=== PATIENT | male | born 1980 ===

== ENCOUNTER 2018-04-22 11:48 | Emergency (ER) | payer OTHER ==
[2018-04-22 11:56] VITALS: BP 129/77; PULSE 54; TEMP 97; O2SAT 99
[2018-04-22 11:57] VITALS: BMI 29.6
[2018-04-22 12:06] VITALS: RESP 16
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
--- NOTE | 2018-04-22 13:51 | CARD ---
APPROVED REPORT EKG Measurement Heart [id number] <Conclusion> Sinus bradycardia Otherwise normal ECG
== END 2018-04-22 14:01 | disposition home or self-care (01) ==
LOC: H.ER 11:48
DX: R07.9 Chest pain, unspecified (principal); R51 Headache; M62.838 Other muscle spasm; V49.9XXA Car occupant (driver) (passenger) injured in unspecified traffic accident, initial encounter; Z87.891 Personal history of nicotine dependence

== ENCOUNTER 2018-10-02 12:28 | Emergency (ER) | payer SELFPAY ==
[2018-10-02 12:28] VITALS: BMI 29.6
[2018-10-02 12:54] VITALS: BP 146/72; PULSE 85; RESP 18; TEMP 98.2; O2SAT 97
[2018-10-02] MEDS ORDERED: Sodium Chloride 0.9% 1,000 ML IV STA (13:24)
--- NOTE | 2018-10-02 13:28 | ED PDOC ---
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 He is requesting detoxification because he has been drinking a lot in the last week. Patient reports that his last drink was today and came to the ED because his mother believes he needs help. According to interpreter deaf, patient says "I feel like I want to go to a bridge and jump". Otherwise, he denies chest pain and shortness of breath. PMD: Dr. Karis Velazquez Past Medical History Reviewed: Historical Data, Nursing Documentation, Vital Signs Vital Signs: Last Vital Signs Temp 98.2 F 10/02/18 12:51 Pulse 85 10/02/18 12:51 Resp 18 10/02/18 12:51 BP 146/72 10/02/18 12:51 Pulse Ox 97 10/02/18 12:51 - Medical History PMH: No Chronic Diseases - Surgical History Surgical History: No Surg Hx - Family History Family History: States: Unknown Family Hx - Home Medications Home Medications: Ambulatory Orders Medication Instructions Recorded Cyclobenzaprine [Cyclobenzaprine 10 mg PO Q8 PRN #12 tab 04/22/18 HCl] - Allergies Allergies/Adverse Reactions: Allergies Allergy/AdvReac Type Severity Reaction Status Date / Time No Known Allergies Allergy Verified 10/02/18 12:51 Review of Systems ROS Statement: Except As Marked, All Systems Reviewed And Found Negative Cardiovascular: Negative for: Chest Pain Respiratory: Negative for: Shortness of Breath Gastrointestinal: Positive for: Nausea, Vomiting, Abdominal Pain (intermittent), Diarrhea Psych: Positive for: Suicidal ideation Physical Exam - Reviewed Nursing Documentation Reviewed: Yes Vital Signs Reviewed: Yes - Physical Exam Appears: Positive for: Non-toxic, No Acute Distress Head Exam: Positive for: ATRAUMATIC, NORMAL INSPECTION, NORMOCEPHALIC Skin: Positive for: Normal Color, Warm, Dry Eye Exam: Positive for: EOMI, Normal appearance, PERRL Neck: Positive for: Normal, Painless ROM, Supple Cardiovascular/Chest: Positive for: Regular Rate, Rhythm. Negative for: Murmur Respiratory: Positive for: Normal Breath Sounds. Negative for: Wheezing, Respiratory Distress Gastrointestinal/Abdominal: Positive for: Normal Exam, Soft. Negative for: Tenderness Extremity: Positive for: Normal ROM. Negative for: Deformity, Swelling Neurologic/Psych: Positive for: Alert, Oriented. Negative for: Motor/Sensory Deficits - Laboratory Results Result Diagrams: 10/02/18 13:30 10/02/18 13:30 Interpretation Of Abn Labs: coccaine and etoh - ECG ECG: Positive for: Interpreted By Me, Viewed By Me ECG Rhythm: Positive for: Normal QRS, Normal ST Segment, Sinus Rhythm O2 Sat by Pulse Oximetry: 97 (RA) Pulse Ox Interpretation: Normal - Radiology X-Ray: Read By Radiologist X-Ray Interpretation: No Acute Disease - Progress ED Course And Treament: 1502: Stable. Dr. Limon to fu on lipase and crisis. Medical Decision Making Medical Decision Makin:23 Impression: nausea, vomiting diarrhea, suicidal ideation Initial Plan: --CMP --Alcohol --UDS --Lipase --UDS --CBC --PTT/INR --CXR --Crisis --Ativan 1 mg PO --NS IV --Pepcid 20 mg IVP --Toradol 15 mg IVP --Zofran Inj 4 mg IV --1:1 observation Scribe Attestation: Documented by Kelley Torres acting as a scribe for Otto Lima MD Provider Scribe Attestation: All medical record entries made by the Scribe were at my direction and personally dictated by me. I have reviewed the chart and agree that the record accurately reflects my personal performance of the history, physical exam, medical decision making, and the department course for this patient. I have also personally directed, reviewed, and agree with the discharge instructions and disposition. Disposition - Clinical Impression Clinical Impression: Abdominal pain - Patient ED Disposition Is Patient to be Admitted: Transfer of Care - Disposition Disposition Time: 15:04 Condition: STABLE Patient Signed Over To: Miquel Hilliard
[2018-10-02 13:46] LABS: INR 1.2; PROTHROMBIN TIME 13.9 Seconds (9.8-13.1)
[2018-10-02 13:48] LABS: PARTIAL THROMBOPLASTIN TIME 31.7 Seconds (25.6-37.1)
[2018-10-02 13:53] LABS: ALB/GLOB RATIO 1.3 (1.0-2.1); ALBUMIN 4.7 g/dL (3.5-5.0); ALT/SGPT 46 U/L (21-72); AST/SGOT 55 U/L (17-59); BLOOD UREA NITROGEN 10 mg/dl (9-20); CALCIUM 9.1 mg/dL (8.4-10.2); GFR NON-AFRICAN AMERICAN > 60
[2018-10-02 13:54] LABS: BASO % 0.4 % (0.0-2.0); EOS % 0.6 % (0.0-4.0); LYMPH # 2.1 K/uL (1.0-4.3); LYMPH % 26.4 % (20.0-40.0); MEAN CORPUSCULAR HEMOGLOBIN 28.4 pg (27.0-31.0); MEAN CORPUSCULAR HGB CONC 34.7 g/dL (33.0-37.0); MEAN PLATELET VOLUME 7.9 fl (7.2-11.7); MONO # 0.7 K/uL (0.0-0.8); MONO % 9.2 % (0.0-10.0); NEUT # 5.1 K/uL (1.8-7.0); NEUT % 63.4 % (50.0-75.0); NRBC % 0.5 % (0.0-0.0); RBC 5.98 Mil/uL (4.40-5.90); RED CELL DISTRIBUTION WIDTH 12.7 % (11.5-14.5)
--- NOTE | 2018-10-02 14:23 | RAD ---
Date of service: 10/02/2018 HISTORY: vomiting COMPARISON: Chest radiograph dated 04/22/2018. FINDINGS: LUNGS: Low lung volumes. Probable bibasilar atelectasis. PLEURA: No significant pleural effusion identified, no pneumothorax apparent. CARDIOVASCULAR: No aortic atherosclerotic calcification present. Normal cardiac size. No pulmonary vascular congestion. OSSEOUS STRUCTURES: No significant abnormalities. VISUALIZED UPPER ABDOMEN: Normal. OTHER FINDINGS: None. IMPRESSION: Low lung volumes. Faint bibasilar opacities likely due to atelectasis from shallow inspiration and less likely from consolidations. PA/lateral views with good inspiratory effort can be obtained for further characterization as clinically warranted.
[2018-10-02 14:25] LABS: BARBITURATES, UR NEGATIVE (NEGATIVE); BENZODIAZEPINES, UR NEGATIVE (NEGATIVE); OPIATES, UR NEGATIVE (NEGATIVE); PHENCYCLIDINE, UR NEGATIVE (NEGATIVE)
--- NOTE | 2018-10-02 15:26 | ED PDOC ---
- Laboratory Results Result Diagrams: 10/02/18 13:30 10/02/18 13:30 - ECG O2 Sat by Pulse Oximetry: 97 (RA) Pulse Ox Interpretation: Normal - Progress Re-evaluation Time: 16:41 Condition: Re-examined (Denies SI/HI) Medical Decision Making Medical Decision Makin:00 --Patient endorsed to this provider by Dr Lima pending lipase and reevaluation. Disposition - Clinical Impression Clinical Impression: Abdominal pain, Substance abuse - POA Present On Arrival: None - Disposition [facility]errals[facility] [[facility]] Disposition: Routine/Home Disposition Time: 16:43 Condition: FAIR Instructions: Polysubstance Abuse Forms: [facility] (Faroese)
--- NOTE | 2018-10-03 13:18 | CARD ---
APPROVED REPORT Date of service: 10/02/2018 EKG Measurement Heart [id number] <Conclusion> Normal sinus rhythm Normal ECG
== END 2018-10-02 17:00 | disposition home or self-care (01) ==
LOC: H.ER 12:28
DX: R10.9 Unspecified abdominal pain (principal); F19.10 Other psychoactive substance abuse, uncomplicated; R45.851 Suicidal ideations
CPT/HCPCS: 71045; 80053; 80320; 80324; 80345; 80346; 80349; 80353; 80358; 80361; 83690; 83992; 85025; 85610; 85730; 93005; 96361; 96374; 96375; 99284; J1885; J2060; J2405; J7030

== ENCOUNTER 2018-10-06 09:14 | Emergency (ER) | payer SELFPAY ==
[2018-10-06 09:17] VITALS: BMI 31.8
[2018-10-06 09:19] VITALS: TEMP 98.7; O2SAT 99
--- NOTE | 2018-10-06 09:32 | ED PDOC ---
HPI: Abdomen Time Seen by Provider: 10/06/18 09:22 History Per: Patient Onset/Duration Of Symptoms: Days (7) Current Symptoms Are (Timing): Still Present Severity: Mild Quality Of Discomfort: Other (Distention) Associated Symptoms: Constipation. denies: Nausea, Vomiting, Diarrhea Exacerbating Factors: None Alleviating Factors: None Additional Complaint(s): Abdominal distention assoc with contipation x 1 week. Denies fever, nausea or vomiting. Denies blood in stool. Past Medical History Vital Signs: Last Vital Signs Temp 98.7 F 10/06/18 09:18 Pulse 66 10/06/18 09:18 Resp 17 10/06/18 09:18 BP 142/84 10/06/18 09:18 Pulse Ox 99 10/06/18 09:18 - Medical History PMH: No Chronic Diseases Denies: Diabetes, Hepatitis, HIV, HTN, Seizures, Sexually Transmitted Disease - Family History Family History: States: Unknown Family Hx - Home Medications Home Medications: Ambulatory Orders Medication Instructions Recorded Cyclobenzaprine [Cyclobenzaprine 10 mg PO Q8 PRN #12 tab 04/22/18 HCl] Famotidine [Pepcid] 20 mg PO Q12 #20 tab 10/02/18 Polyethylene Glycol 3350 [Miralax] 17 gm PO DAILY #100 ml 10/06/18 - Allergies Allergies/Adverse Reactions: Allergies Allergy/AdvReac Type Severity Reaction Status Date / Time No Known Allergies Allergy Verified 10/02/18 12:51 Review of Systems ROS Statement: Except As Marked, All Systems Reviewed And Found Negative Constitutional: Negative for: Fever Gastrointestinal: Positive for: Abdominal Pain, Constipation. Negative for: Nausea, Vomiting Physical Exam - Reviewed Nursing Documentation Reviewed: Yes Vital Signs Reviewed: Yes - Physical Exam Appears: Positive for: Non-toxic, No Acute Distress Head Exam: Positive for: ATRAUMATIC, NORMAL INSPECTION, NORMOCEPHALIC Skin: Positive for: Normal Color, Warm, DRY Eye Exam: Positive for: EOMI, Normal appearance, PERRL ENT: Positive for: Normal ENT Inspection Neck: Positive for: Normal, Painless ROM Cardiovascular/Chest: Positive for: Regular Rate, Rhythm Respiratory: Positive for: CNT, Normal Breath Sounds Gastrointestinal/Abdominal: Positive for: Distended. Negative for: Tenderness Back: Positive for: Normal Inspection Rectal: Positive for: Other (Empty vault, no masses) Extremity: Positive for: Normal ROM Neurologic/Psych: Positive for: Alert, Oriented - Laboratory Results Result Diagrams: 10/06/18 10:12 10/06/18 10:12 - ECG O2 Sat by Pulse Oximetry: 99 Disposition - Clinical Impression Clinical Impression: Constipation - Patient ED Disposition Is Patient to be Admitted: No - Disposition Referrals: [facility] [Outside] Disposition: Routine/Home Disposition Time: 12:46 Condition: FAIR Prescriptions: Polyethylene Glycol 3350 [Miralax] 17 gm PO DAILY #100 ml Instructions: Constipation in Adults Print Language: CZECH
[2018-10-06 10:25] LABS: BASO % 0.2 % (0.0-2.0); EOS # 0.1 K/uL (0.0-0.7); EOS % 2.1 % (0.0-4.0); HEMOGLOBIN 15.4 g/dL (12.0-18.0); LYMPH # 0.8 K/uL (1.0-4.3); LYMPH % 14.2 % (20.0-40.0); MEAN CELL VOLUME 84.4 fl (80.0-94.0); MEAN CORPUSCULAR HEMOGLOBIN 28.4 pg (27.0-31.0); MEAN CORPUSCULAR HGB CONC 33.7 g/dL (33.0-37.0); MEAN PLATELET VOLUME 7.9 fl (7.2-11.7); MONO # 0.6 K/uL (0.0-0.8); NEUT # 4.3 K/uL (1.8-7.0); NEUT % 73.5 % (50.0-75.0); NRBC % 0.1 % (0.0-0.0); RBC 5.41 Mil/uL (4.40-5.90); RED CELL DISTRIBUTION WIDTH 12.6 % (11.5-14.5); WHITE BLOOD COUNT 5.9 K/uL (4.8-10.8)
[2018-10-06 10:40] LABS: ALB/GLOB RATIO 1.5 (1.0-2.1); ALBUMIN 4.5 g/dL (3.5-5.0); ALT/SGPT 53 U/L (21-72); AST/SGOT 47 U/L (17-59); BLOOD UREA NITROGEN 8 mg/dl (9-20); CALCIUM 9.2 mg/dL (8.4-10.2); GFR NON-AFRICAN AMERICAN > 60
[2018-10-06] MEDS ORDERED: Sodium Chloride 0.9% 50 ML IV ONE (11:12)
[2018-10-06] MEDS ORDERED: Iohexol 300 100 ML IJ ONE (11:12)
[2018-10-06 13:28] VITALS: BP 140/80; PULSE 70; RESP 18
--- NOTE | 2018-10-06 14:26 | CT ---
Date of service: 10/06/2018 PROCEDURE: CT Abdomen and Pelvis with contrast HISTORY: Abd pain COMPARISON: None. TECHNIQUE: Contrast dose: 95 cc of Omnipaque 300 intravenously. Axial and reformatted coronal and sagittal CT images of the abdomen and pelvis were obtained after IV contrast administration. Radiation dose: Total exam DLP = 776.16 mGy-cm. This CT exam was performed using one or more of the following dose reduction techniques: Automated exposure control, adjustment of the mA and/or kV according to patient size, and/or use of iterative reconstruction technique. FINDINGS: LOWER THORAX: Unremarkable. LIVER: Unremarkable. No gross lesion or ductal dilatation. GALLBLADDER AND BILE DUCTS: Unremarkable. PANCREAS: Unremarkable. No gross lesion or ductal dilatation. SPLEEN: Unremarkable. ADRENALS: Unremarkable. No mass. KIDNEYS AND URETERS: Unremarkable. No hydronephrosis. No solid mass. VASCULATURE: Unremarkable. No aortic aneurysm. No aortic atherosclerotic calcification or mural plaque present. BOWEL: Unremarkable. No obstruction. No gross mural thickening. APPENDIX: Normal appendix. PERITONEUM: Unremarkable. No free fluid. No free air. LYMPH NODES: Mildly enlarged mesenteric and periaortic lymph nodes noted. BLADDER: The urinary bladder is not fully distended therefore cannot be evaluated. REPRODUCTIVE: Unremarkable. BONES: No acute fracture. OTHER FINDINGS: None. IMPRESSION: Mildly enlarged mesenteric and periaortic lymph nodes. No evidence of cholecystitis pancreatitis or appendicitis.
== END 2018-10-06 13:25 | disposition home or self-care (01) ==
LOC: H.ER 09:14
DX: K59.00 Constipation, unspecified (principal)
CPT/HCPCS: 74177; 80053; 85025; 99283; Q9967

== ENCOUNTER 2018-10-27 09:36 | Emergency (ER) | payer SELFPAY ==
[2018-10-27 09:36] VITALS: BMI 31.8
[2018-10-27 09:43] VITALS: PULSE 61; RESP 18; TEMP 98.7; O2SAT 99
--- NOTE | 2018-10-27 10:43 | ED PDOC ---
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 is a 38 y/o Male who reports right ear pain starting last night, no associated fevers. Pt. reports right ear feeling clogged last week, seen at a clinic and was referred to ENT clinic, no meds. Pain started last night. Past Medical History Reviewed: Historical Data, Nursing Documentation, Vital Signs Vital Signs: Last Vital Signs Temp 98.7 F 10/27/18 09:43 Pulse 61 10/27/18 09:43 Resp 18 10/27/18 09:43 BP 122/74 10/27/18 09:43 Pulse Ox 99 10/27/18 09:43 - Medical History PMH: Anxiety Denies: Diabetes, Hepatitis, HIV, HTN, Seizures, Sexually Transmitted Disease - Family History Family History: States: Unknown Family Hx - Immunization History Hx Tetanus Toxoid Vaccination: No Hx Influenza Vaccination: No Hx Pneumococcal Vaccination: No - Home Medications Home Medications: Ambulatory Orders Medication Instructions Recorded Cyclobenzaprine [Cyclobenzaprine 10 mg PO Q8 PRN #12 tab 04/22/18 HCl] Famotidine [Pepcid] 20 mg PO Q12 #20 tab 10/02/18 Polyethylene Glycol 3350 [Miralax] 17 gm PO DAILY #100 ml 10/06/18 Amoxicillin 875 mg PO BID 10 Days #20 tablet 10/27/18 Neomycin/Polymyxin/Hydrocortis 4 drop AD QID #1 bottle 10/27/18 [Cortisporin Otic Susp] - Allergies Allergies/Adverse Reactions: Allergies Allergy/AdvReac Type Severity Reaction Status Date / Time No Known Allergies Allergy Verified 10/27/18 10:00 Review of Systems ROS Statement: Except As Marked, All Systems Reviewed And Found Negative ENT: Positive for: Ear Pain Physical Exam - Reviewed Nursing Documentation Reviewed: Yes Vital Signs Reviewed: Yes - Physical Exam Appears: Positive for: Well, Non-toxic Head Exam: Positive for: ATRAUMATIC, NORMAL INSPECTION (No swelling, tenderness over mastoid. ) Skin: Positive for: Normal Color, Warm, Dry Eye Exam: Positive for: Normal appearance, EOMI ENT: Positive for: TM Is/Are (Right mild erythema, (-) vesicles, (-) bulging. Left: wnl). Negative for: Normal ENT Inspection (Right: mildly erythematous external ear canal, no swelling, no drainage. Small amount of hard cerumen clost to TM. Left ear canal: wnl.), Sinus Pain/Drainage, Nasal Congestion, Pharyngeal Erythema, Tonsillar Swelling Lymphatic: Positive for: Normal Exam. Negative for: Adenopathy - ECG O2 Sat by Pulse Oximetry: 99 Medical Decision Making Medical Decision Making: Small amount of hardened ?cerumen, some left because difficult to remove. TM intact. Ear canal slightly erythematous, may be from prior attempt to remove. Will cover with otic drops in addition to oral abx. Pt. well appearing, non toxic, no distress. Disposition - Clinical Impression Clinical Impression: Right ear pain - Patient ED Disposition Is Patient to be Admitted: No Counseled Patient/Family Regarding: Diagnosis, Need For Followup, Rx Given - Disposition Disposition: Routine/Home Disposition Time: 10:53 Condition: STABLE Prescriptions: Amoxicillin 875 mg PO BID 10 Days #20 tablet Neomycin/Polymyxin/Hydrocortis [Cortisporin Otic Susp] 4 drop AD QID #1 bottle Instructions: Ear Infections (Otitis Media) (DC) Forms: [facility] (Korean) Print Language: CHINESE
[2018-10-27 11:26] VITALS: BP 120/70
== END 2018-10-27 11:25 | disposition home or self-care (01) ==
LOC: H.ER 09:36
DX: H92.01 Otalgia, right ear (principal)

== ENCOUNTER 2019-03-09 14:28 | Emergency (ER) | payer SELFPAY ==
[2019-03-09 14:28] VITALS: BMI 31.8
[2019-03-09 15:25] VITALS: RESP 16
--- NOTE | 2019-03-09 16:15 | ED PDOC ---
HPI: Abdomen Time Seen by Provider: 03/09/19 15:51 Chief Complaint (Nursing): Abdominal Pain History Per: Patient History/Exam Limitations: no limitations Onset/Duration Of Symptoms: Other (1 month) Outside of [place] travel?: No Current Symptoms Are (Timing): Gone Now Severity: Moderate Pain Scale Rating Of: 4 Location Of Pain/Discomfort: Other (Rectal pain) Exacerbating Factors: Other (BM) Past Medical History Reviewed: Historical Data, Nursing Documentation, Vital Signs Vital Signs: Last Vital Signs Temp 98.3 F 03/09/19 15:21 Pulse 60 03/09/19 15:21 Resp 16 03/09/19 15:21 BP 126/70 03/09/19 15:21 Pulse Ox 99 03/09/19 15:21 - Medical History PMH: Anxiety Denies: Diabetes, Hepatitis, HIV, HTN, Seizures, Sexually Transmitted Disease - Surgical History Surgical History: No Surg Hx - Family History Family History: States: Unknown Family Hx - Immunization History Hx Tetanus Toxoid Vaccination: No Hx Influenza Vaccination: No Hx Pneumococcal Vaccination: No - Home Medications Home Medications: Ambulatory Orders Medication Instructions Recorded Cyclobenzaprine [Cyclobenzaprine 10 mg PO Q8 PRN #12 tab 04/22/18 HCl] Famotidine [Pepcid] 20 mg PO Q12 #20 tab 10/02/18 Polyethylene Glycol 3350 [Miralax] 17 gm PO DAILY #100 ml 10/06/18 Amoxicillin 875 mg PO BID 10 Days #20 tablet 10/27/18 Neomycin/Polymyxin/Hydrocortis 4 drop AD QID #1 bottle 10/27/18 [Cortisporin Otic Susp] Lidocaine 5% 1 appl TP BID #1 tube 03/09/19 Phenylephrine HCl/Orchard Butter 1 each RC DAILY #10 supp.rect 03/09/19 [Hemorrhoidal Suppositories] - Allergies Allergies/Adverse Reactions: Allergies Allergy/AdvReac Type Severity Reaction Status Date / Time No Known Allergies Allergy Verified 03/09/19 15:21 Review of Systems ROS Statement: Except As Marked, All Systems Reviewed And Found Negative Physical Exam - Reviewed Nursing Documentation Reviewed: Yes Vital Signs Reviewed: Yes - Physical Exam Appears: Positive for: Non-toxic, No Acute Distress Head Exam: Positive for: ATRAUMATIC, NORMAL INSPECTION Skin: Positive for: Warm, Dry Eye Exam: Positive for: EOMI ENT: Positive for: Normal ENT Inspection Neck: Positive for: Painless ROM, Supple Cardiovascular/Chest: Positive for: Regular Rate, Rhythm Respiratory: Positive for: Normal Breath Sounds Gastrointestinal/Abdominal: Positive for: Soft. Negative for: Tenderness Rectal: Positive for: Tenderness, Other (Be[employer] Hel[employer] Em). Negative for: Blood Streaked Stool, Hemorrhoids Extremity: Positive for: Normal ROM Neurological/Psych: Positive for: Awake, Alert, Oriented - ECG O2 Sat by Pulse Oximetry: 99 Medical Decision Making Medical Decision Making: Rectal pain for 1 month Diff include hemorrodis, anal fissure Disposition - Clinical Impression Clinical Impression: Rectal pain, Anal fissure - Patient ED Disposition Is Patient to be Admitted: No Counseled Patient/Family Regarding: Studies Performed, Diagnosis, Need For Followup - Disposition [facility] Disposition: Routine/Home Disposition Time: 17:00 Condition: GOOD Additional Instructions: LINDA MARQUEZ, thank you for letting us take care of you today. Your provider was Alaina Yanez MD and you were treated for ABD PAIN. The emergency medical care you received today was directed at your acute symptoms. If you were prescribed any medication, please fill it and take as directed. It may take several days for your symptoms to resolve. Return to the Emergency Department if your symptoms worsen, do not improve, or if you have any other problems. Please contact your doctor or call one of the physicians/clinics you have been referred to that are listed on the Patient Visit Information form that is included in your discharge packet. Bring any paperwork you were given at discharge with you along with any medications you are taking to your follow up visit. Our treatment cannot replace ongoing medical care by a primary care provider outside of the emergency department. Thank you for allowing the [facility] team to be part of your care today. Prescriptions: Lidocaine 5% 1 appl TP BID #1 tube Phenylephrine HCl/Orchard Butter [Hemorrhoidal Suppositories] 1 each RC DAILY #10 supp.rect Instructions: Anal Fissure Print Language: COMORAN
[2019-03-09 17:13] VITALS: BP 120/68; PULSE 61; TEMP 98.6
[2019-03-14 12:37] VITALS: O2SAT 99
== END 2019-03-09 17:30 | disposition home or self-care (01) ==
LOC: H.ER 14:28
DX: K60.2 Anal fissure, unspecified (principal)